=== PATIENT | female | born 1950 | race Caucasian/White ===

== ENCOUNTER → 2019-01-26 | Outpatient (CLI) | payer MEDICARE, BC ==
--- NOTE | 2019-01-26 17:36 | RAD ---
Bilateral lower extremity arterial ultrasound History: Nonhealing right foot ulcer, left lower extremity medial distal ulcer Findings: Multiple grayscale, color, and duplex spectral analysis sonographic images were acquired of the lower extremity arteries bilaterally. There are no previous similar exams. Diffuse atheromatous calcific involvement of the lower extremity arterial vasculature is noted. Overlying bandages at the distal left calf limits evaluation somewhat. Velocities in cm/sec: RIGHT Waveforms below are triphasic except as noted. Common femoral artery 141 Profunda femoris artery 79, biphasic waveform Proximal SFA 98 Mid SFA 91 Distal SFA 17 Popliteal artery 75 Anterior tibial artery 56 Dorsalis pedis artery 46 , biphasic waveforms Posterior tibial artery 56 with biphasic waveform proximally but flow is not visualized distally Peroneal artery 35, biphasic waveform LEFT: Waveforms are monophasic except as noted. 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 Monophasic flow also is evident involving much of the left lower extremity arterial vasculature of concern for diminished flow. No flow identified within the right tibialis posterior artery distally. Diffuse atheromatous involvement evident. Occlusion is of concern. Electronically signed by: Ganesh Holly MD (01/26/2019 5:33 PM) [facility]
== END | disposition home or self-care (01) ==
LOC: US 13:55
PROVIDERS: ATTEND Emergency Medicine Undersea and Hyperbaric Medicine
DX: L97.511 Non-pressure chronic ulcer of other part of right foot limited to breakdown of skin (principal); L97.521 Non-pressure chronic ulcer of other part of left foot limited to breakdown of skin
CPT/HCPCS: 93925